=== PATIENT | male | born 1985 | race African-American/Black ===

== ENCOUNTER 2017-03-27 21:06 | Emergency (ER) | payer MEDICAID, OTHER ==
[~2017-03-27] VITALS: Ht 180.3 cm; Wt 87.5 kg
[2017-03-27 21:13] VITALS: Ht 180.3 cm; Wt 87.5 kg
--- NOTE | 2017-03-28 00:42 | RADRPT ---
PROCEDURE: XR Chest. CLINICAL INDICATION: Chest pain. TECHNIQUE: Single frontal chest x-ray. COMPARISON: None. FINDINGS: The cardiomediastinal silhouette is unremarkable. There is no congestive heart failure.. No focal i nfiltrate is seen. There is no pleural effusion. There is no pneumothorax. The osseous structures are unremarkable. IMPRESSION: 1. No active disease. RPTAT: HMVK .Joao Amaya MD, MD Date Time Electronically viewed and signed by .Joao Amaya MD, MD on 03/28/2017 00:42 .K/
[2017-03-28 01:17] VITALS: BP 132/81; PULSE 77; RESP 20; TEMP 98.3
--- NOTE | 2017-03-31 15:51 | ERD ---
ER Documentation Chief Complaint Date/Time DATE: 03/31/17 TIME: 15:48 Chief Complaint Feeling SOB and CWP. possible anxiety HPI This patient is a 31-year-old male with past medical history of hypertension presenting to the emergency department for intermittent shortness of breath for the past 2 days. The patient also reports increased amounts of stress in his life recently and he states he has had anxiety in the past. He feels some tingling sensation in the chest which is very short-lived and intermittent he describes it as sharp. He states his symptoms may be related to anxiety. He denies nausea, vomiting, diarrhea, fevers, chills, or other symptoms at this time. ROS All systems reviewed and are negative except as per history of present illness. Allergies Allergies: Coded Allergies: No Known Allergy (Unverified , 03/27/17) PMhx/Soc Medical and Surgical Hx: pt denies Medical Hx, pt denies Surgical Hx History of Surgery: No Anesthesia Reaction: No Hx Neurological Disorder: No Hx Respiratory Disorders: No Hx Psychiatric Problems: No Hx Miscellaneous Medical Probl: Yes (MERI DELA CRUZ 2015) Hx Alcohol Use: Yes (SOCIALLY) Hx Substance Use: No Hx Tobacco Use: Yes (CIGARS) Smoking Status: Never smoker Physical Exam Vitals Vital Signs Date Time Temp Pulse Resp B/P Pulse Ox O2 Delivery O2 Flow Rate FiO2 03/28/17 01:17 98.3 77 20 132/81 100 03/27/17 21:13 97.8 84 20 146/95 100 Physical Exam Const: The patient is resting comfortably in no acute distress. Head: Atraumatic Eyes: Normal Conjunctiva ENT: Normal External Ears, Nose and Mouth. Neck: Full range of motion..~ No meningismus. Resp: Clear to auscultation bilaterally Cardio: Regular rate and rhythm, no murmurs Abd: Soft, non tender, non distended. Normal bowel sounds Skin: No petechiae or rashes Back: No midline or flank tenderness Ext: No cyanosis, or edema Neur: Awake and alert Psych: Normal Mood with a slightly anxious affect. Results [address] [address] Radiology Main Line: [phone] DIAGNOSTIC IMAGING REPORT Patient: DAMASO JAUREGUI : 1985 Age: 31 Sex: M MR #: [id number] DOS: 03/27/17 0000 Ordering MD: ANDRIA SOSA PA-C Location: [facility] Room/Bed: PROCEDURE: XR Chest. CLINICAL INDICATION: Chest pain. TECHNIQUE: Single frontal chest x-ray. COMPARISON: None. FINDINGS: The cardiomediastinal silhouette is unremarkable. There is no congestive heart failure.. No focal infiltrate is seen. There is no pleural effusion. There is no pneumothorax. The osseous structures are unremarkable. IMPRESSION: 1. No active disease. RPTAT: HMVK .Joao Amaya MD, MD Date Time Electronically viewed and signed by .Joao Amaya MD, on 03/28/2017 00:42 .K/ CC: ANDRIA SOSA PA-C Procedures/MDM 31-year-old male presents secondary to complaints of difficulty breathing which is very short-lived as well as tingling feeling in the chest. On physical examination the patient appears slightly anxious. EKG: Interpreted by ED physician Rate/Rhythm: Normal sinus rhythm with a rate of 79 bpm. QRS, ST, T-waves: No changes consistent w/ acute ischemia Impression: No evidence of ischemia or arrhythmia Chest x-ray was negative for acute disease and was interpreted by the radiologist. I believe the patient's symptoms are secondary to anxiety. He was offered a short course prescription for Ativan as an outpatient but he declined at this time. The patient was advised to have very close follow-up with the primary care physician the patient has had no thoughts of hurting himself or others. I have low suspicion for acute coronary syndrome, status asthmaticus, pneumothorax, pulmonary embolism, or other emergent conditions. Strict ER return precautions were discussed and the patient demonstrates good understanding. All questions and concerns were addressed. Departure Diagnosis: Primary Impression: Chest wall pain Additional Impression: Anxiety reaction Condition: Fair Patient Instructions: Your Body's Response to Anxiety, Chest Wall Pain, Costochondritis Referrals: [facility] YOU HAVE RECEIVED A MEDICAL SCREENING EXAM AND THE RESULTS INDICATE THAT YOU DO NOT HAVE A CONDITION THAT REQUIRES URGENT TREATMENT IN THE EMERGENCY DEPARTMENT. FURTHER EVALUATION AND TREATMENT OF YOUR CONDITION CAN WAIT UNTIL YOU ARE SEEN IN YOUR DOCTORS OFFICE WITHIN THE NEXT 1-2 DAYS. IT IS YOUR RESPONSIBILITY TO MAKE AN APPOINTMENT FOR FOLOW-UP CARE. IF YOU HAVE A PRIMARY DOCTOR --you should call your primary doctor and schedule an appointment IF YOU DO NOT HAVE A PRIMARY DOCTOR YOU CAN CALL OUR PHYSICIAN REFERRAL HOTLINE AT IF YOU CAN NOT AFFORD TO SEE A PHYSICIAN YOU CAN CHOSE FROM THE FOLLOWING [facility] [address] [facility] [address] [facility] [facility] [address] [facility] [address] [facility] [facility] [address] [facility] [facility] [address] [place] Additional Instructions: Follow up with your PCP within the next 1-3 days for a repeat evaluation and a possible referral to a specialist, if required. Return the the emergency department immediately if symptoms worsen or change. If you have any questions regarding medications, ask your pharmacist or us before you leave. If any adverse reactions, occur while taking your medications, discontinue the treatment and return to the emergency department immediately. If any new or worsening symptoms, uncontrolled fevers, or other unexplained symptoms occur, return to the emergency department immediately. Take your medications as directed, and complete the entire course of treatment. ANDRIA SOSA PA-C March 31, 2017 15:51
== END 2017-03-28 01:17 | disposition home or self-care (01) ==
LOC: FTE 21:06
DX: R07.89 Other chest pain (principal); F41.1 Generalized anxiety disorder; I10 Essential (primary) hypertension
CPT/HCPCS: 71010; Z7502